=== PATIENT | female | born 1985 | race Caucasian/White ===

== ENCOUNTER 2016-09-29 09:05 | Emergency (ER) | payer OTHER ==
[~2016-09-29] VITALS: Ht 167.6 cm; Wt 70.3 kg
[~2016-09-29 09:05] MED LIST: AUGMENTIN 875875 MG PO; BACTRIM DS TAB1 EACH PO; HALDOL DEC100 MG/1 M IM; HYDROXYZINE HCL25 M1 PO; SEROQUEL400 MG PO; SUBOXONE 2 MG-1 EAC1; XANAX 0.25 MG0.25 MG PO
[2016-09-29 09:17] VITALS: BP 119/76
== END 2016-09-29 09:55 | disposition left against medical advice (07) ==
LOC: ER 09:05
DX: R42 Dizziness and giddiness (principal); N39.0 Urinary tract infection, site not specified; F20.9 Schizophrenia, unspecified; F32.9 Major depressive disorder, single episode, unspecified; F17.210 Nicotine dependence, cigarettes, uncomplicated; Z88.8 Allergy status to other drugs, medicaments and biological substances

== ENCOUNTER 2016-12-06 06:44 | Emergency (ER) | payer OTHER ==
[~2016-12-06] VITALS: Ht 167.6 cm; Wt 68.0 kg
[2016-12-06 06:54] VITALS: BP 109/75
[2016-12-06] MEDS ORDERED: TOPAMAX50 MG PO (07:02)
[2016-12-06] MEDS ORDERED: NEURONTIN 300300 M1 PO (07:02)
[2016-12-06] MEDS ORDERED: VENLAFAXINE HC100 MG PO (07:03)
[2016-12-06] MEDS ORDERED: CARVEDILOL12.5 MG PO (07:03)
[2016-12-06] MEDS ORDERED: HALOPERIDOL 5 MG5 MG PO (07:03)
[2016-12-06] MEDS ORDERED: BENZTROPINE MESY2 MG PO (07:03)
[2016-12-06] MEDS ORDERED: LATUDA40 MG PO (07:05)
[2016-12-06] MEDS ORDERED: TRAZODONE HCL100 MG PO (07:05)
[2016-12-06] MEDS ORDERED: ZANTAC 150MG T150 MG PO (07:06)
[2016-12-06] MEDS ORDERED: HYDROXYZINE PAM50 MG PO (07:06)
[2016-12-06] MEDS ORDERED: TUMS PO (07:06)
== END 2016-12-06 07:22 | disposition home or self-care (01) ==
LOC: ER 06:44
DX: M79.89 Other specified soft tissue disorders (principal); F41.9 Anxiety disorder, unspecified; F32.9 Major depressive disorder, single episode, unspecified; F20.9 Schizophrenia, unspecified; F17.210 Nicotine dependence, cigarettes, uncomplicated

== ENCOUNTER 2017-01-08 10:33 | Emergency (ER) | payer OTHER ==
[~2017-01-08] VITALS: Ht 167.6 cm; Wt 68.0 kg
[~2017-01-08 10:33] MED LIST changes: +BENZTROPINE MESY2 MG PO; +CARVEDILOL12.5 MG PO; +HALOPERIDOL 5 MG5 MG PO; +HYDROXYZINE PAM50 MG PO; +LATUDA40 MG PO; +NEURONTIN 300300 M1 PO; +TOPAMAX50 MG PO; +TRAZODONE HCL100 MG PO; +TUMS PO; +VENLAFAXINE HC100 MG PO; +ZANTAC 150MG T150 MG PO
[2017-01-08 10:34] VITALS: BP 127/82
[2017-01-08] MEDS ORDERED: BACTRIM DS TAB1 EACH PO (11:13)
== END 2017-01-08 11:18 | disposition home or self-care (01) ==
LOC: ER 10:33
DX: L02.413 Cutaneous abscess of right upper limb (principal); F41.9 Anxiety disorder, unspecified; F32.9 Major depressive disorder, single episode, unspecified; F20.9 Schizophrenia, unspecified; F17.210 Nicotine dependence, cigarettes, uncomplicated; Z88.8 Allergy status to other drugs, medicaments and biological substances

== ENCOUNTER 2017-01-16 09:14 | Emergency (ER) | payer OTHER ==
[~2017-01-16] VITALS: Ht 170.2 cm; Wt 68.0 kg
[2017-01-16 09:15] VITALS: BP 109/67
[2017-01-16] MEDS ORDERED: DOXYCYCLINE 10100 MG PO (09:40)
== END 2017-01-16 09:54 | disposition home or self-care (01) ==
LOC: ER 09:14
DX: L02.413 Cutaneous abscess of right upper limb (principal); F20.9 Schizophrenia, unspecified; F41.9 Anxiety disorder, unspecified; F32.9 Major depressive disorder, single episode, unspecified; F17.210 Nicotine dependence, cigarettes, uncomplicated; Z88.8 Allergy status to other drugs, medicaments and biological substances

== ENCOUNTER 2019-01-11 14:04 | Emergency (ER) | payer OTHER ==
[~2019-01-11] VITALS: Ht 165.1 cm; Wt 68.0 kg
[~2019-01-11 14:04] MED LIST changes: +DOXYCYCLINE 10100 MG PO
[2019-01-11 14:37] LABS: URINE BLOOD 3+ (Negative); URINE CLARITY CLOUDY; URINE COLOR YELLOW; URINE GLUCOSE-RANDOM* NEGATIVE (Negative); URINE KETONES TRACE (Negative); URINE NITRITE-REFLEX NEGATIVE (Negative); URINE PROTEIN (DIPSTICK) 1+ (Negative); URINE SPECIFIC GRAVITY >= 1.030 (1.005-1.035)
[2019-01-11 14:40] LABS: ICTOTEST (BILI CONFIRMATORY) Negative (Negative); URINE BILIRUBIN NEGATIVE (Negative); URINE LEUKOCYTES-REFLEX 1+ (Negative)
[2019-01-11 14:52] LABS: BACTERIA-REFLEX >30 Many /HPF (None Seen); CASTS None Seen /LPF (None Seen); CRYSTALS None Seen /LPF (None Seen); MUCUS >6 Heavy strn/LPF (None Seen); SQUAMOUS >10 Many /LPF (0-3); URINE RBC >20 Many /HPF (0-2)
[2019-01-11] MEDS ORDERED: KEFLEX500 M2 PO (14:55)
[2019-01-11] MEDS ORDERED: PYRIDIUM200 MG PO (14:59)
[2019-01-11 15:03] VITALS: BP 119/74
== END 2019-01-11 15:05 | disposition home or self-care (01) ==
LOC: ER 14:04
PROVIDERS: Physician Assistant
DX: N39.0 Urinary tract infection, site not specified (principal); F20.9 Schizophrenia, unspecified; F41.9 Anxiety disorder, unspecified; F32.9 Major depressive disorder, single episode, unspecified; F17.210 Nicotine dependence, cigarettes, uncomplicated; Z88.8 Allergy status to other drugs, medicaments and biological substances

== ENCOUNTER 2019-01-17 02:09 | Emergency (ER) | payer OTHER ==
[~2019-01-17] VITALS: Ht 165.1 cm; Wt 68.0 kg
[~2019-01-17 02:09] MED LIST changes: +KEFLEX500 M2 PO; +PYRIDIUM200 MG PO
[2019-01-17] MEDS ORDERED: ZOFRAN ODT4 MG PO (03:07)
[2019-01-17] MEDS ORDERED: BACTRIM DS TAB1 EACH PO (03:07)
[2019-01-17 03:24] VITALS: BP 118/76
== END 2019-01-17 03:25 | disposition home or self-care (01) ==
LOC: ER 02:09
DX: L02.31 Cutaneous abscess of buttock (principal); F20.9 Schizophrenia, unspecified; F41.9 Anxiety disorder, unspecified; F32.9 Major depressive disorder, single episode, unspecified; F17.210 Nicotine dependence, cigarettes, uncomplicated; Z88.8 Allergy status to other drugs, medicaments and biological substances

== ENCOUNTER 2019-02-04 06:22 | Emergency (ER) | payer OTHER ==
[~2019-02-04] VITALS: Ht 165.1 cm; Wt 68.0 kg
[~2019-02-04 06:22] MED LIST changes: +ZOFRAN ODT4 MG PO
[2019-02-04 06:42] LABS: URINE BILIRUBIN NEGATIVE (Negative); URINE BLOOD NEGATIVE (Negative); URINE CLARITY CLEAR; URINE COLOR YELLOW; URINE GLUCOSE-RANDOM* NEGATIVE (Negative); URINE KETONES 1+ (Negative); URINE LEUKOCYTES-REFLEX NEGATIVE (Negative); URINE NITRITE-REFLEX NEGATIVE (Negative); URINE PROTEIN (DIPSTICK) TRACE (Negative); URINE SPECIFIC GRAVITY >= 1.030 (1.005-1.035); URINE UROBILINOGEN 0.2 E.U./dl (0.2-1.0)
[2019-02-04 06:48] LABS: AMP/METHAMP Negative (Negative); BARBITURATES Negative (Negative); BENZODIAZEPINES Negative (Negative); COCAINE Negative (Negative); METHADONE Negative (Negative); OPIATES POSITIVE (Negative); PCP Negative (Negative)
[2019-02-04 07:11] LABS: ABSOLUTE NEUTROPHILS 8.4 thou/uL (1.4-8.2); BASOPHILS 0.4 % (0.0-2.0); EOSINOPHILS 0.1 % (0.0-3.0); HEMATOCRIT 49.7 % (37.0-47.0); HEMOGLOBIN 16.4 gm/dL (12.0-15.0); LYMPHOCYTES 5.2 % (24.0-44.0); MONOCYTES 2.8 % (1.0-8.0); PLATELET COUNT 332 thou/uL (150-400); POLYS 91.5 % (36.0-66.0); RBC 5.84 mil/uL (4.20-5.00); RDW 13.2 % (10.5-14.5); WBC 9.1 thou/uL (4.0-11.0)
[2019-02-04 07:16] LABS: CALCIUM 9.9 mg/dL (8.5-10.1); CREATININE 0.9 mg/dL (0.6-1.0); POTASSIUM 3.5 mmol/L (3.5-5.1)
[2019-02-04 07:22] LABS: ALBUMIN 4.3 g/dL (3.4-5.0); TOTAL BILIRUBIN 0.5 mg/dL (<0.1-1.0); TOTAL PROTEIN 9.2 g/dL (6.4-8.2)
[2019-02-04] MEDS ORDERED: PROMS25 WY RECTAL (07:29)
[2019-02-04] MEDS ORDERED: PHENERGAN 25 MG25 M1 PO (07:29)
[2019-02-04 08:11] VITALS: BP 118/62
== END 2019-02-04 08:13 | disposition home or self-care (01) ==
LOC: ER 06:22
PROVIDERS: Emergency Medicine
DX: F11.23 Opioid dependence with withdrawal (principal); R11.2 Nausea with vomiting, unspecified; F20.9 Schizophrenia, unspecified; F32.9 Major depressive disorder, single episode, unspecified; F41.9 Anxiety disorder, unspecified; Z88.8 Allergy status to other drugs, medicaments and biological substances; F17.210 Nicotine dependence, cigarettes, uncomplicated